=== PATIENT | female | born 1990 | race Caucasian/White ===

== ENCOUNTER → 2024-04-06 07:24 | Outpatient (REF) | payer OTHER, SELFPAY | LOC: PNTC 07:24 | PROVIDERS: ATTENDING PHYSICIAN Nurse Practitioner Family | DX: Z34.90 Encounter for supervision of normal pregnancy, unspecified, unspecified trimester (principal); Z34.01 Encounter for supervision of normal first pregnancy, first trimester | CPT/HCPCS: 76801; 76817 ==

== ENCOUNTER → 2024-04-19 10:28 | Outpatient (REF) | payer SELFPAY | LOC: PNTC 10:28 | PROVIDERS: ATTENDING PHYSICIAN Obstetrics & Gynecology | DX: O36.80X0 Pregnancy with inconclusive fetal viability, not applicable or unspecified (principal) | CPT/HCPCS: 76801; 76817 ==

== ENCOUNTER → 2024-05-10 12:52 | Outpatient (REF) | payer BC, SELFPAY | LOC: PNTC 12:52 | PROVIDERS: ATTENDING PHYSICIAN Obstetrics & Gynecology | DX: O99.210 Obesity complicating pregnancy, unspecified trimester (principal) | CPT/HCPCS: 36415; 76801; 76813 ==

== ENCOUNTER → 2024-06-06 11:29 | Outpatient (REF) | payer BC, SELFPAY | LOC: PNTC 11:29 | PROVIDERS: ATTENDING PHYSICIAN Obstetrics & Gynecology | DX: O99.210 Obesity complicating pregnancy, unspecified trimester (principal) | CPT/HCPCS: 76805 ==